=== PATIENT | female | born 1985 | race Caucasian/White ===

== ENCOUNTER 2017-06-11 18:39 | Emergency (ER) | payer BC, OTHER ==
[2017-06-11] MEDS ORDERED: SILVER SULFADIAZINE 1% TOP CREAM 50 GM JAR TP ONE (18:50)
[2017-06-11] MEDS ORDERED: IBUPROFEN 600 MG TABLET (FP) PO ONE (18:51)
[2017-06-11] MEDS ORDERED: SULFACETAMIDE SODIUM 10% OPHTHALMIC DROPS 15 ML BOTTLE OS ONE (18:51)
[2017-06-11] MEDS ORDERED: TOBRAMYCIN 0.3% OPHTH SOLN 5 ML BOTTLE OS ONE (18:53)
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
[2017-06-11 19:04] VITALS: BP 117/72; PULSE 99; TEMP 98.1; BMI 22.6
== END 2017-06-11 19:10 | disposition home or self-care (01) ==
LOC: FER 18:39
PROC: 2W21X4Z Dressing of Face using Bandage (ICD-10-PCS; principal; 2017-06-11)
DX: T20.10XA Burn of first degree of head, face, and neck, unspecified site, initial encounter (principal); Y92.9 Unspecified place or not applicable; T31.0 Burns involving less than 10% of body surface
CPT/HCPCS: 99283-25

== ENCOUNTER 2017-07-25 14:50 | Emergency (ER) | payer BC ==
[2017-07-25 14:55] VITALS: BP 111/77; PULSE 75; TEMP 98; BMI 21.9
[2017-07-25] MEDS ORDERED: MAG HYDROX/AL HYDROX/SIMETH 30 ML UNIT-DOSE CUP PO ONE (15:14)
[2017-07-25] MEDS ORDERED: LIDOCAINE VISCOUS 2% ORAL/TOP 20 ML UNIT-DOSE CUP MM ONE (15:14)
[2017-07-25] MEDS ORDERED: FAMOTIDINE 20 MG TABLET PO ONE (15:14)
[2017-07-25] MEDS ORDERED: LIDOCAINE VISCOUS 2% ORAL/TOP 20 ML UNIT-DOSE CUP ONE (15:29)
[2017-07-25] MEDS ORDERED: FAMOTIDINE 20 MG TABLET ONE (15:29)
[2017-07-25] MEDS ORDERED: MAG HYDROX/AL HYDROX/SIMETH 30 ML UNIT-DOSE CUP ONE (15:29)
--- NOTE | 2017-07-25 15:36 | PDOC ---
History of Present Illness - History of Present Illness Initial Comments: 07/25/17 15:43 The patient is a 31 year old female, with no significant past medical history, who presents to the emergency department with abdominal pain for 2 days ( Tuesday). Patient states that her pain began Tuesday 4-5 hours after eating a large lunch. She states that it went away but came back on Tuesday and persisted all day and continues to bother her today. She describes her abdominal pain as a ball of gas. Patient states that her pain is worse when standing or turning to her right side. She also states that the pain came on gradually. 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 LMP - last week ( 2 periods this month). She reports associated nausea. She denies past history of ovarian cysts, kidney, or gallbladder issues. She denies recent fevers, chills, headache or dizziness. She denies recent vomit , diarrhea or constipation. She denies recent dysuria, frequency, urgency or hematuria. She denies recent chest pain or shortness of breath. <Rachel Angel - Last Filed: 07/25/17 15:42> - General History Source: Patient Exam Limitations: No Limitations <Beena Goldstein - Last Filed: 07/25/17 18:03> - General Chief Complaint: Pain Stated Complaint: ABD PAIN Time Seen by Provider: 07/25/17 14:57 Past History <Rachel Angel - Last Filed: 07/25/17 15:42> - Past Medical History COPD: No Other medical history: DENIES - Suicide/Smoking/Psychosocial Hx Smoking History: Current some day smoker Have you smoked in the past 12 months: Yes Number of Cigarettes Smoked Daily: 1 Information on smoking cessation initiated: Yes 'Breaking Loose' booklet given: 07/25/17 Hx Alcohol Use: (social) Drug/Substance Use Hx: No <Beena Goldstein - Last Filed: 07/25/17 18:03> - Past Medical History Allergies/Adverse Reactions: Allergies Allergy/AdvReac Type Severity Reaction Status Date / Time No Known Allergies Allergy Verified 07/25/17 14:52 Home Medications: Ambulatory Orders Ibuprofen [Motrin -] 600 mg PO TID #90 tablet 07/25/17 Miconazole/Cleanser 17 On Wipe [Monistat 3 Combo Pack] 1 each VG HS #1 kit 07/25 Review of Systems - Review of Systems Comments:: 07/25/17 15:45 GENERAL/CONSTITUTIONAL: No fever or chills. No weakness. HEAD, EYES, EARS, NOSE AND THROAT: No change in vision. No ear pain or discharge. No sore throat. GASTROINTESTINAL: +nausea +abdominal pain. no vomiting, diarrhea or constipation. GENITOURINARY: No dysuria, frequency, or change in urination. CARDIOVASCULAR: No chest pain or shortness of breath. RESPIRATORY: No cough, wheezing, or hemoptysis. MUSCULOSKELETAL: No joint or muscle swelling or pain. No neck or back pain. SKIN: No rash NEUROLOGIC: No headache, vertigo, loss of consciousness, or change in strength/ sensation. ENDOCRINE: No increased thirst. No abnormal weight change. HEMATOLOGIC/LYMPHATIC: No anemia, easy bleeding, or history of blood clots. ALLERGIC/IMMUNOLOGIC: No hives or skin allergy. <Rachel Angel - Last Filed: 07/25/17 15:42> *Physical Exam - Vital Signs Last Vital Signs Temp Pulse Resp BP Pulse Ox 98 F 75 18 111/77 100 07/25/17 14:50 07/25/17 14:50 07/25/17 14:50 07/25/17 14:50 07/25/17 14:50 - Physical Exam Comments: 07/25/17 15:46 GENERAL: Awake, alert, and fully oriented, in no acute distress HEAD: No signs of trauma EYES: PERRLA, EOMI, sclera anicteric, conjunctiva clear ENT: Auricles normal inspection, nares patent, Moist mucosa NECK: Normal ROM, supple, no lymphadenopathy, JVD, or masses LUNGS: Breath sounds equal, clear to auscultation bilaterally. No wheezes, and no crackles HEART: Regular rate and rhythm, normal S1 and S2, no murmurs, rubs or gallops ABDOMEN: Epigastric and LLQ tenderness. Some voluntary guarding. No rebound. Normal bowel sounds. No masses EXTREMITIES: Normal range of motion, no edema. No clubbing or cyanosis. No cords, erythema, or tenderness NEUROLOGICAL: Normal speech. Oriented x3. SKIN: Warm, dry, well-perfused, normal turgor, no rashes or lesions noted. <Rachel Angel - Last Filed: 07/25/17 15:42> - Vital Signs Last Vital Signs Temp Pulse Resp BP Pulse Ox 98 F 75 18 111/77 100 07/25/17 14:50 07/25/17 14:50 07/25/17 14:50 07/25/17 14:50 07/25/17 14:50 <Beena Goldstein - Last Filed: 07/25/17 18:03> ED Treatment Course - Medications Given in the ED: ED Medications Discontinued Medications Generic Name Dose Route Start Last Admin Trade Name Ly PRN Reason Stop Dose Admin Al Hydroxide/Mg Hydroxide 30 ml 07/25/17 15:14 07/25/17 15:35 Mylanta Oral Suspension - PO 07/25/17 15:15 30 ml ONCE ONE Administration Famotidine 20 mg 07/25/17 15:14 07/25/17 15:30 Pepcid - PO 07/25/17 15:15 20 mg ONCE ONE Administration Lidocaine HCl 20 ml 07/25/17 15:14 07/25/17 15:35 Xylocaine 2% Viscous Oral - MM 07/25/17 15:15 20 ml ONCE ONE Administration <Rachel Angel - Last Filed: 07/25/17 15:42> - LABORATORY CBC & Chemistry Diagram: 07/25/17 15:15 07/25/17 15:15 <Beena Goldstein - Last Filed: 07/25/17 18:03> Medical Decision Making - Medical Decision Making 07/25/17 15:34 31-year-old female no past history here today complaining of epigastric and left lower quadrant pain. Patient states symptoms started 2-3 days ago worse with certain movements and lying on her side. Last period was a week ago. The but irregular this month to periods this month no urinary complaints no history of gallstones kidney stones no known history of ovarian cysts no fevers chills nausea vomiting or any change to her stool habits. Exam is noted for left lower quadrant tenderness and epigastric tenderness mild voluntary guarding. Differential: Ruptured hemorrhagic ovarian cyst, pancreatitis, gastritis or other related pain UTI, pyelonephritis. Plan UA labs and ultrasound to rule out ovarian pathology. If unremarkable may consider CT scan 07/25/17 17:36 ultrasound discussed with radiology pt has right sided involuting ovarian cyst, with small free fluid. no ov. enlargement. venous flow. pt ttp on left likley from referred peritoneal irritation of fluid. 07/25/17 17:59 pt pelvic exam with right sided ttp. no cmt. scant whitish dc c/w fungal infection. <Beena Goldstein - Last Filed: 07/25/17 18:03> *DC/Admit/Observation/Transfer - Attestations Scribe Attestion: 07/25/17 15:49 Documentation prepared by Rachel Angel, acting as director of medical review for Beena Goldstein MD. <Rachel Angel - Last Filed: 07/25/17 15:42> - Discharge Dispostion Admit: No <Beena Goldstein - Last Filed: 07/25/17 18:03> Diagnosis at time of Disposition: Ovarian cyst, Vaginitis - Discharge Dispostion Disposition: HOME Condition at time of disposition: Improved - Prescriptions Prescriptions: Ibuprofen [Motrin -] 600 mg PO TID #90 tablet Miconazole/Cleanser 17 On Wipe [Monistat 3 Combo Pack] 1 each VG HS #1 kit - Referrals Referrals: Jerardo Goode MD [Staff Physician] - - Patient Instructions Printed Discharge Instructions: Ovarian Cyst Additional Instructions: you should follow up with your hat mender. call to schedule. you can take ibuprofen 600 mg every 8 hrs as needed for pain. return for any problems or concerns.use Monistat cream n each night 3 days you can follow-up with [facility] see referral info
[2017-07-25] MEDS ORDERED: SODIUM CHLORIDE 0.9% 1000 ML INFUS.BAG IV ONE (15:38)
[2017-07-25 15:43] LABS: PH,URINE 6.5 (4.5-8); URINE APPEARANCE Clear; URINE BILIRUBIN Negative (NEGATIVE); URINE BLOOD Negative (NEGATIVE); URINE GLUCOSE (UA) Negative (NEGATIVE); URINE KETONE Trace (NEGATIVE); URINE LEUK ESTERASE Negative (NEGATIVE); URINE NITRITE Negative (NEGATIVE); URINE PROTEIN Negative (NEGATIVE); URINE UROBILINOGEN 0.2 (0.2-1.0)
[2017-07-25 15:44] LABS: URINE COLOR YELLOW
[2017-07-25 15:59] LABS: BASOPHIL 0.6 % (0-2.0); EOSINOPHIL 3.9 % (0-4.5); MCH 29.9 pg (25.7-33.7); MCHC 33.7 g/dl (32.0-36.0); MEAN CELL VOLUME 88.6 fl (80-96); MEAN PLT VOLUME 10.1 fl (7.5-11.1); NEUTROPHILS 60.4 % (42.8-82.8); PLATELET COUNT 250 K/MM3 (134-434); RDW 13.1 % (11.6-15.6); WHITE BLOOD COUNT 9.3 K/mm3 (4.0-10.8)
[2017-07-25 16:17] LABS: ALBUMIN 4.4 g/dl (3.5-5.0); ALK PHOS 57 U/L (32-92); ANION GAP 6 (8-16); BILIRUBIN,TOTAL 1.1 mg/dl (0.2-1.0); CALCIUM 9.1 mg/dl (8.4-10.2); CO2 26 mmol/L (22-28); CREATININE 0.6 mg/dl (0.6-1.3); GLUCOSE,RANDOM 97 mg/dl (74-106); SGOT/AST 22 U/L (10-42); SGPT/ALT 20 U/L (10-40); TOT PROT 6.7 g/dl (6.4-8.3)
[2017-07-25] MEDS ORDERED: KETOROLAC TROMETHAMINE 30 MG/1 ML VIAL ONE (16:35)
[2017-07-25] MEDS ORDERED: FLUCONAZOLE 50 MG TABLET PO ONE (18:03)
[2017-07-25] MEDS ORDERED: FLUCONAZOLE 150 MG TABLET PO ONE (18:14)
[2017-07-25] MEDS ORDERED: KETOROLAC TROMETHAMINE 30 MG/1 ML VIAL IVPUSH ONE (19:13)
== END 2017-07-25 18:25 | disposition home or self-care (01) ==
LOC: FER 14:50
PROC: 3E0337Z Introduction of Electrolytic and Water Balance Substance into Peripheral Vein, Percutaneous Approach (ICD-10-PCS; principal; 2017-07-25)
PROC: 3E0333Z Introduction of Anti-inflammatory into Peripheral Vein, Percutaneous Approach (ICD-10-PCS; 2017-07-25)
DX: N83.209 Unspecified ovarian cyst, unspecified side (principal); N76.0 Acute vaginitis
CPT/HCPCS: 36415; 76830-TC; 76856-TC; 80053; 81003; 83690; 84703; 85025; 99283-25